=== PATIENT | male | born 2000 | race American Indian/Alaskan Native ===

== ENCOUNTER 2021-07-05 11:14 | Emergency (ER) | payer SELFPAY ==
[2021-07-05] MEDS ORDERED: fentaNYL 100 MCG/2 ML INJ IV ONE (11:28)
[2021-07-05] MEDS ORDERED: ONDANSETRON 4 MG/2 ML INJ IV ONE (11:28)
[2021-07-05] MEDS ORDERED: KETOROLAC 30 MG/1 ML INJ IV ONE (11:28)
--- NOTE | 2021-07-05 11:37 | Emergency Department Report ---
HPI - General Chief Complaint: Shoulder Injury Time Seen by Provider: 07/05/21 11:25 - HPI HPI: [facility] 24 Patient is a 20-year-old male present with chief complaint of right shoulder pain/dislocation. Patient states this morning he was reaching back to catch his son when his right shoulder popped out of place. Patient states this happened 2 times before. Patient denies any direct trauma. Patient currently gives his pain a score of 10/10. Patient states his last p.o. occurred last night ED Past Medical Hx - Past Medical History Previous Medical History?: No - Surgical History Past Surgical History?: No - Family History Family history: no significant - Social History Smoking Status: Never Smoker Substance Use Type: Alcohol (Occasional), Marijuana - Medications Home Medications: Home Medications Medication Instructions Recorded Confirmed Last Taken Type Cyclobenzaprine [Flexeril] 10 mg PO TID PRN #10 tablet 07/05/21 Unknown Rx HYDROcodone/APAP 5-325 [[place]ushing 1 - 2 each PO Q6HR PRN #10 tablet 07/05/21 Unknown Rx 5/325] Ibuprofen [Motrin 800 MG tab] 800 mg PO Q8HR PRN #20 tablet 07/05/21 Unknown Rx ED Review of Systems ROS: Stated complaint: POSS RT SHOULDER DISLOCATION Other details as noted in HPI Constitutional: no symptoms reported Eyes: denies: eye pain ENT: denies: throat pain Respiratory: no symptoms reported Cardiovascular: denies: chest pain Endocrine: no symptoms reported Gastrointestinal: denies: abdominal pain Genitourinary: denies: dysuria Musculoskeletal: arthralgia Neurological: denies: headache Physical Exam - Physical Exam Physical Exam: GENERAL: The patient is well-developed well-nourished male lying on stretcher not appearing to be in acute distress. [] HEENT: Normocephalic. Atraumatic. Extraocular motions are intact. Patient has moist mucous membranes. NECK: Supple. Trachea midline CHEST/LUNGS: There is no respiratory distress noted. HEART/CARDIOVASCULAR: Regular. There is no tachycardia. 2+ right radial pulse ABDOMEN: Abdomen is soft, nontender. Patient has normal bowel sounds. There is no abdominal distention. SKIN: There is no rash. There is no edema. There is no diaphoresis. NEURO: The patient is awake, alert, and oriented. The patient is cooperative. The patient has no focal neurologic deficits. The patient has normal speech. GCS 15 MUSCULOSKELETAL: There is no range of motion of the right shoulder secondary to pain - Moderate Sedation Indications: fracture/dislocation redu ASA Class: I Mallampati Airway Score: 1 Preparation: quality assurance monitor body applied, pulse oximeter, capnometry used, supplemental O2 applied, suction/airway equipment at bedside, IV secured IV Etomidate Dose (mgs): 10 Complications: none Patient Tolerated Procedure: well - Orthopedic Joint Reduction Joint #1 Consent Obtained: verbal consent, written consent Time Out Performed: Yes Side: right Joint Reduction Location: shoulder Analgesia: moderate sedation Shoulder Technique Used (if applicable): traction/counter-traction Technique Used: traction/counter-traction Post-Reduction Neuro Exam: intact Post-Reduction Vascular Exam: intact Post Reduction X-Ray Obtained: Yes Post Reduction X-Ray Results: reduced Splint Applied: Yes Patient Tolerated Procedure: well ED Medical Decision Making - Radiology Data Radiology results: report reviewed (Right shoulder x-ray #1, right shoulder x- ray #2), image reviewed (Right shoulder x-ray #1, right shoulder x-ray #2) interpreted by me: Right shoulder x-ray #1-anterior dislocation of the shoulder. No fracture seen. Right shoulder x-ray #2-successful reduction. Anatomic. No fracture seen [facility] [address] [place] [address] XRay Report Signed Patient: SVETLANA NICHOLSON MR#: [id number] : 2000 Acct:[id number] Age/Sex: 20 / M ADM Date: 07/05/21 Loc: ED Attending Dr: Ordering Physician: RADHA STEWART MD Date of Service: 07/05/21 Procedure(s): XR shoulder 2+V RT Accession Number(s): [id number] cc: RADHA STEWART MD Fluoro Time In Minutes: RIGHT SHOULDER 2 VIEW(S) INDICATION / CLINICAL INFORMATION: Pain, possible dislocation COMPARISON: None available. FINDINGS: BONES / JOINT(S): The humeral head is dislocated anteroinferiorly. Recommend postreduction x-ray No significant arthritis. SOFT TISSUES: No significant abnormality. ADDITIONAL FINDINGS: None. Signer Name: Micheal Armendariz MD Signed: 07/05/2021 12:04 PM W orkstation Name: [id number] Transcribed By: TL Dictated By: Micheal Armendariz MD Electronically Authenticated By: Micheal Armendariz MD Signed Date/Time: 07/05/211203 DD/ 03 TD/TT: Print - Differential Diagnosis Shoulder dislocation, pathologic fracture Critical care attestation.: If time is entered above; I have spent that time in minutes in the direct care of this critically ill patient, excluding procedure time. ED Disposition Clinical Impression: Closed anterior dislocation of right shoulder, Acute pain of right shoulder Disposition: - TO HOME OR SELFCARE Is pt being admited?: No Does the pt Need Aspirin: No Condition: Stable Instructions: Shoulder Dislocation, Recurrent Shoulder Laxity and Instability Additional Instructions: Return to the emergency department should you develop worsening symptoms, inability to tolerate food or liquids, high fever or any other concerns Prescriptions: Cyclobenzaprine [Flexeril] 10 mg PO TID PRN #10 tablet PRN Reason: Muscle Spasm Ibuprofen [Motrin 800 MG tab] 800 mg PO Q8HR PRN #20 tablet PRN Reason: Pain, Moderate (4-6) HYDROcodone/APAP 5-325 [Cushing 5/325] 1 - 2 each PO Q6HR PRN #10 tablet PRN Reason: Pain Referrals: JERSON RENDON MD [Staff Physician] - 3-5 Days (Dr. Rendon is an orthopedic surgeon. Please follow-up with him for further evaluation of your frequent shoulder dislocations) Time of Disposition: 12:51
[2021-07-05] MEDS ORDERED: ETOMIDATE 20 MG/10 ML INJ IV ONE (11:58)
--- NOTE | 2021-07-05 12:09 | XRay Report ---
RIGHT SHOULDER 2 VIEW(S) INDICATION / CLINICAL INFORMATION: Pain, possible dislocation COMPARISON: None available. FINDINGS: BONES / JOINT(S): The humeral head is dislocated anteroinferiorly. Recommend postreduction x-ray No s ignificant arthritis. SOFT TISSUES: No significant abnormality. ADDITIONAL FINDINGS: None. Signer Name: Micheal Armendariz MD Signed: 07/05/2021 12:04 PM Workstation Name: [id number]
[2021-07-05 12:57] VITALS: BP 137/74
--- NOTE | 2021-07-05 13:00 | XRay Report ---
RIGHT SHOULDER 1 VIEW(S) INDICATION / CLINICAL INFORMATION: Status post reduction COMPARISON: 11:38 AM same day FINDINGS: BONES / JOINT(S): The humerus has been reduced and now projects in expected position since earlier . [place]Sachs impaction fracture noted. No significant arthritis. SOFT TISSUES: No significant abnormality. ADDITIONAL FINDINGS: None. Signer Name: Micheal Armendariz MD Signed: 07/05/2021 12:56 PM Workstation Name: [id number]
== END 2021-07-05 13:08 | disposition home or self-care (01) ==
LOC: ED 11:14
DX: S43.014A Anterior dislocation of right humerus, initial encounter (principal); F12.90 Cannabis use, unspecified, uncomplicated; Z79.899 Other long term (current) drug therapy; X58.XXXA Exposure to other specified factors, initial encounter; Y93.89 Activity, other specified; Y92.89 Other specified places as the place of occurrence of the external cause; Y99.8 Other external cause status
CPT/HCPCS: 23650; 73020; 73030; 96374; 96375; 99284; J1885; J2405; J3010